=== PATIENT | male | born 1995 | race Asian ===

== ENCOUNTER 2016-08-22 18:26 | Day surgery (SDC) | payer MEDICAID, OTHER ==
[2016-08-22] MEDS ORDERED: IOPAMIDOL 370 (76%) IV.SOLN 150 ML IV ONE (18:27)
[2016-08-22] MEDS ORDERED: SODIUM CHLORIDE 0.9% 1,000 ML ONE (19:17)
[2016-08-22] MEDS ORDERED: ONDANSETRON 4 MG/2ML 2 ML VIAL ONE ×3 (19:17→21:31)
[2016-08-22] MEDS ORDERED: MORPHINE SULFATE 4 MG/ML SYRINGE ONE (19:17)
[2016-08-22 19:23] LABS: ABSOLUTE NEUTROPHIL COUNT 15.9 K/mm3 (1.8-7.7); BASO # 0.1 K/mm3 (0.0-0.2); BASO % 0.3 % (0.2-1.0); EOS # 0.1 (0.0-0.5); EOS % 0.3 % (0.9-2.9); HEMATOCRIT 41.7 % (32.0-52.0); HEMOGLOBIN 14.1 gm/l (14.0-18.0); IMM NEUT # 0.1 K/mm3 (0-0.2); IMM NEUT% 0.4 % (0-1); LYMPH # 2.5 (1.0-4.8); LYMPH % 12.8 % (15-45); MEAN CELL VOLUME 81.4 fl (80.0-94.0); MEAN CORPUSCULAR HEMOGLOBIN 27.5 pg (27.0-31.0); MEAN CORPUSCULAR HGB CONC 33.8 g/dl (33.0-37.0); MEAN PLATELET VOLUME 9.6 fl (7.4-10.4); MONO # 1.1 (0.0-0.8); MONO % 5.7 % (4-12); NEUT % 80.5 % (43-75); PLATELET COUNT 344 K/mm3 (130-400); RED CELL DISTRIBUTION WIDTH 13.5 % (11.5-14.5)
[2016-08-22 19:24] LABS: SPECIFIC GRAVITY 1.015 (1.001-1.030); URINE APPEARANCE CLEAR; URINE BILIRUBIN NEGATIVE (NEGATIVE); URINE BLOOD NEGATIVE (NEGATIVE); URINE COLOR YELLOW; URINE GLUCOSE (UA) NEGATIVE (NEGATIVE); URINE LEUKOCYTE ESTERASE NEGATIVE (NEGATIVE); URINE NITRITE NEGATIVE (NEGATIVE); URINE PROTEIN 1+ (NEGATIVE); URINE UROBILINOGEN NORMAL (0-1 mg/dl)
[2016-08-22 19:38] LABS: ALB/GLOB RATIO 1.8 (>1.0); ALBUMIN 4.9 gm/dL (3.5-5.7); ALT/SGPT 13 U/L (7-52); BLOOD UREA NITROGEN 11 mg/dL (7-25); BUN/CREATININE RATIO 14 (6-20); CALCIUM 9.8 mg/dL (8.6-10.3)
[2016-08-22 19:43] LABS: URINE BACTERIA 0; URINE EPITHELIAL CELLS 0-1 /hpf; URINE RBC 0 /hpf; URINE WBC 0-1 /hpf
[2016-08-22] MEDS ORDERED: PIPERACILLIN SODIUM/TAZOBACTAM 4.5 G VIAL IV ONE (20:33)
[2016-08-22] MEDS ORDERED: PIPERACILLIN SODIUM/TAZOBACTAM 4.5 G in SODIUM CHLORIDE 0.9% 100 ML IV ONE (20:45)
[2016-08-22] MEDS ORDERED: DEXAMETHASONE SOD PHOS 4 MG/1 ML VIAL ONE (21:27)
[2016-08-22] MEDS ORDERED: PROPOFOL 20 ML IV ONE (21:27)
[2016-08-22] MEDS ORDERED: MIDAZOLAM HCL 1 MG/ML 2ML VIAL ONE (21:27)
[2016-08-22] MEDS ORDERED: FENTANYL 100 MCG/2 ML VIAL ONE (21:27)
[2016-08-22] MEDS ORDERED: ROCURONIUM BROMIDE 10 MG/ML DOSE IV ONE (21:27)
[2016-08-22] MEDS ORDERED: LIDOCAINE 1%/EPI 1:100,000 (MULTI DOSE) 30 ML VIAL ONE (21:38)
[2016-08-22] MEDS ORDERED: BUPIVACAINE 0.5% (PRES FREE) 30 ML VIAL ONE (21:38)
[2016-08-22] MEDS ORDERED: LACTATED RINGERS 1,000 ML ONE (21:46)
[2016-08-22] MEDS ORDERED: HYDROMORPHONE HCL 1 MG/ML SYRINGE IV PRN ×2 (21:50→23:52)
[2016-08-22] MEDS ORDERED: HYDRALAZINE HCL 20 MG/1 ML VIAL IV PRN (21:50)
[2016-08-22] MEDS ORDERED: LABETALOL HCL 5 MG/ML 20ML VIAL IV PRN (21:50)
[2016-08-22] MEDS ORDERED: PROMETHAZINE HCL 25 MG/ML VIAL IM PRN (21:50)
[2016-08-22] MEDS ORDERED: ONDANSETRON 4 MG/2ML 2 ML VIAL IV PRN (21:50)
[2016-08-22] MEDS ORDERED: MEPERIDINE 25 MG/ML SYRINGE IV PRN (21:50)
[2016-08-22] MEDS ORDERED: FENTANYL 100 MCG/2 ML VIAL IV PRN (21:50)
[2016-08-22] MEDS ORDERED: NALOXONE HCL 0.4 MG/ML VIAL IV PRN (21:50)
[2016-08-22] MEDS ORDERED: ATROPINE SULFATE 0.4 MG/1 ML VIAL IV PRN (21:50)
[2016-08-22] MEDS ORDERED: LACTATED RINGERS 1,000 ML IV SCH (22:00)
[2016-08-22] MEDS ORDERED: CEFAZOLIN SODIUM 1,000 MG VIAL ONE (22:25)
[2016-08-22] MEDS ORDERED: HYDROMORPHONE HCL 2 MG/ML SYRINGE ONE (22:32)
[2016-08-22] MEDS ORDERED: GLYCOPYRROLATE 0.2 MG/ML 1ML VIAL ONE (22:43)
[2016-08-22] MEDS ORDERED: NEOSTIGMINE METHYLSULFATE 1 MG/ML DOSE ONE (22:43)
--- NOTE | 2016-08-22 22:58 | PCMON ---
Date of Procedure: 08/22/16 Start Time: 10:00pm PREOPERATIVE DIAGNOSIS Acute appendicitis. POSTOPERATIVE DIAGNOSIS Acute appendicitis without perforation. PROCEDURE PERFORMED Laparoscopic appendectomy. COMPLICATIONS None. OPERATIVE FINDINGS Acute appendicitis without perforation ESTIMATED BLOOD LOSS 30 ml BRIEF INDICATIONS NOAH GUADARRAMA is a 20 year old M patient that was admitted with symptoms of acute appendicitis. The preoperative CBC revealed a elevated WBC, physical examination demonstrated RLQ abdominal tenderness, and CT scan supported the diagnosis of acute appendicitis. Risks and benefits of surgery were explained to the patient, including the risk of bowel resection, stoma creation and the possible need for conversion to open technique. The patient declined the possible alternatives and agreed to proceed with surgery, providing informed consent. DESCRIPTION OF PROCEDURE The patient was brought to the operating room and placed supine on the operating room table. A surgical briefing was held to verify the correct patient and correct procedure. A general anesthetic was induced uneventfully, followed by the administration of a subcutaneous heparin injection and perioperative antibiotics. Pneumatic compression stockings were placed on the legs and powered on. A Reyes catheter was placed to closed gravity drainage. The abdomen was prepped and draped in a sterile fashion. A 5-mm direct optical view trocar was used to enter the left lower quadrant under direct vision of the abdominal wall layers. Once inside the abdominal cavity, a pneumoperitoneum was created. No injury to underlying structures occurred with placement of this trocar. Once inside the abdominal cavity, an additional 12-mm port was placed periumbilically in the midline. An additional 5-mm port was placed in the midline just above the pubis. All trocars were placed under direct visualization. There was no injury to underlying structures with placement of these trocars. The patient was placed in Trendelenburg position with the right side up. The appendix was visualized at the base of the cecum. The appendix was mobilized allowing identification of the mesoappendix and the base of the appendix. The cecum was not involved by the appendiceal inflammation. A window was created at the base between the appendix and the mesoappendix, and the appendix was then amputated at its base with a blue load Endo JAN stapler. The mesentery of the appendix was then divided with a vascular load of the Endo JAN stapler. The appendix was then removed through the 12-mm midline port using an Endocatch bag. The staple lines were evaluated for hemostasis; no hemorrhage was identified. The RLQ was irrigated with warm saline. The left lower quadrant and suprapubic ports were removed under direct laparoscopic vision, and the incisions were hemostatic. The pneumoperitoneum was then evacuated. The fascia of the 12-mm port was closed with 0 Vicryl. All of the ports and instruments were removed. The skin was closed with 4-0 absorbable subcuticular sutures. Steri-Strips were placed over the incisions and sterile dressings applied. The needle and sponge counts were correct x2 at the completion of the procedure. The patient had no apparent intraoperative complication identified.
[2016-08-22] MEDS ORDERED: D5 1/2NS with 20 mEq KCL 1,000 ML IV SCH (23:52)
[2016-08-22] MEDS ORDERED: ACETAMINOPHEN 325 MG TABLET PO PRN (23:52)
[2016-08-22] MEDS ORDERED: KETOROLAC TROMETHAMINE 30 MG/ML 1 ML VIAL IV PRN (23:52)
[2016-08-22] MEDS ORDERED: OXYCODONE HCL 5 MG TABLET PO PRN (23:52)
[2016-08-23 00:30] VITALS: BMI 25.7
[2016-08-23] MEDS ORDERED: CEFUROXIME SODIUM 1.5 GRAM 50 ML IV ONE (00:50)
[2016-08-23] MEDS ORDERED: PUMP TUBING ONE (01:03)
[2016-08-23] MEDS: ONDANSETRON 4 MG/2ML 2 ML VIAL IV PRN ×2 (01:12→06:29)
[2016-08-23] MEDS: CEFUROXIME SODIUM 1.5 GRAM 1.5 G in Premix (Water) 50 ml 1 EACH IV SCH ×2 (01:12→07:56)
[2016-08-23 07:36] VITALS: BP 111/82
--- NOTE | 2016-08-23 07:56 | CT ---
ABD/PELVIS W/ CON COMPARISON: None. HISTORY: Sudden onset today of right-sided abdominal pain and nausea, with vomiting. Technique: No oral contrast. Intravenous injection 125 mL Isovue 370. Using a [employer] Aquilion [address] scanner, images were obtained from the diaphragm to the floor the pelvis. An automated dose reduction technique was used to minimize patient radiation dose. Dose information: CTDIvol (mGy): 11.00 DLP(mGycm): 597.80 FINDINGS: Lung bases: Normal. Inferior mediastinum and heart: Normal. Liver: Normal. Gallbladder:Normal. Bile ducts: Normal. Pancreas: Normal. Spleen: Normal. Adrenal glands: Normal. Kidneys: Normal. Ureters: Normal Urinary bladder: Normal. Prostate gland and seminal vesicles: Normal. Blood vessels: Normal Lymph nodes: Normal Stomach: Normal Duodenum: Normal Small intestine: Normal Appendix: The appendix is dilated and inflamed and contains an appendicolith. No rupture. Colon: Normal Abdominal wall and supporting musculature: Normal Bones: Normal IMPRESSION: Acute appendicitis without rupture. Preliminary report by [employer]rad radiologist Yuriy Torrez MD 08/22/2016 at 19:55
[2016-08-23] MEDS ORDERED: FAMOTIDINE 10 MG/ML 2ML VIAL IV SCH (09:00)
--- NOTE | 2016-08-23 12:37 | HP ---
EDMUNDO GUADARRAMA [id number] HISTORY OF PRESENT ILLNESS: I had the please of seeing Mr. Edmundo Guadarrama in the [facility] this evening. He states that he has had a number of hours of abdominal discomfort with localization to the right lower quadrant. He is otherwise well, and has not had previous abdominal pain consistent with the admission to [facility] today. PAST MEDICAL HISTORY: Is significant for: 1. Possible Asperger's. 2. Attention deficit hyperactivity disorder. ALLERGIES: HE HAS NO KNOWN DRUG ALLERGIES. CURRENT MEDICATIONS: He takes no medications. PHYSICAL EXAMINATION: GENERAL: Mr. Guadarrama is stated age 20-year-old male. ABDOMEN: He has a soft abdomen with no evidence of guarding. On palpation to the right lower quadrant, he has positive McBurney's point tenderness consistent with acute appendicitis. CARDIOVASCULAR: He has a normal cardiovascular exam with bilateral breath sounds. LABORATORY STUDIES: Values reveal an elevation in white count. Remaining labs are unremarkable. DIAGNOSTIC IMAGING: Mr. Guadarrama underwent a CT scan which demonstrates a dilated fluid filled appendix with a phleboliths. The finding is consistent with acute appendicitis. ASSESSMENT AND PLAN: I had a long discussion today with Mr. Guadarrama and his family. I reviewed the classic history as well as exam, and CT findings of acute appendicitis. I reviewed the risks, and benefits of surgery which included, but were not limited to deep venous thrombosis, MIP, wound infection, urinary tract infection, kidney failure, respiratory failure, reaction to medication, reaction to anesthetic, and hernia. I also discussed the possibility of postoperative bleed and anastomotic leak from the staple line at the appendix. I also discussed the need to convert to an open procedure. Based on the history, physical exam, and the CT findings, I recommended laparoscopic appendectomy, and informed consent was obtained. Plan to proceed to the operating room at the operating room's earliest convenience. We have started antibiotics and resuscitation. JB/stephanie
--- NOTE | 2016-08-26 14:55 | SURGPATH ---
[facility] [address] [place] [id number] Patient Name: NOAH GUADARRAMA MR#: [id number] : 1995 Gender: M Specimen #: [id number] Collected: 08/22/2016 Received: 08/25/2016 Reported: 08/26/2016 Submitting Phys: MARIAM KHAN Copy To Phys: [facility] JUDY HICKMAN Clinical History / Pre-Operative Diagnosis: APPENDICITIS Specimen Source / Surgical Procedure Performed: APPENDIX Interpretation: APPENDIX, APPENDECTOMY: - ACUTE APPENDICITIS Electronically Signed Out Sofia Lopez M.D. Gross Description: The specimen is received in a formalin filled container labeled with the patient's name and "appendix". A vermiform appendix is 6.5 x 1 cm. The focally hemorrhagic periappendiceal fat is 4.5 x 1.5 x 1 cm. The dull case serosa is moderately hemorrhagic and has areas lightly covered with white vincent fibrinopurulent exudate. The surgical staple line is removed and the adjacent section is inked black and submitted as margin. The lumen is patent and contains soft brown fecal material. There is no nodule or fecalith. Three printing supplies sales representative sections are submitted in one cassette including a cross section through the appendiceal surgical margin, a central cross section and a longitudinal section through the tip. Jhon Christy. Microscopic Description: Sections show an ulcerated appendix with transmural acute inflammation. 1: [id number] K35.80
== END 2016-08-23 11:25 | disposition home or self-care (01) ==
LOC: ED 18:26 → MS 20:20 → SDC 20:20
PROVIDERS: ATTEND Surgery
PROC: 0DTJ4ZZ Resection of Appendix, Percutaneous Endoscopic Approach (ICD-10-PCS; principal; 2016-08-22)
DX: K35.80 Unspecified acute appendicitis (principal); F90.9 Attention-deficit hyperactivity disorder, unspecified type